=== PATIENT | female | born 1985 | race Caucasian/White ===

== ENCOUNTER → 2017-07-14 09:34 | Outpatient (CLI) | payer OTHER, SELFPAY ==
[2017-07-14 12:24] LABS: Hematocrit 34.4 % (37-47); Hemoglobin 11.3 g/dl (12.0-15.0); Mean Corp Hgb Conc 32.8 g/gl (32-36); Mean Corpuscular Hgb 31.6 pg (27.0-32.0); Mean Corpuscular Volume 96.1 fL (81-99); Mean Platelet Vol. 11.9 fl (6.2-12.0); Platelet Count 110 K/mm3 (150-450); RBC Distribution Width CV 13.1 % (11.6-14.6); RBC Distribution Width SD 45.7 fl (35.1-43.9); Red Blood Count 3.58 M/mm3 (4.2-5.4); White Blood Count 7.6 K/mm3 (4.4-11.0)
[2017-07-14 12:36] LABS: Glucose Challenge Gest 1H 50g 74 mg/dL (70-140)
[2017-07-14 12:40] LABS: Scan Indicated on CBC? Y/N NO
== END ==
PROVIDERS: Visit Provider Obstetrics & Gynecology
DX: Z34.83 Encounter for supervision of other normal pregnancy, third trimester (principal)
CPT/HCPCS: 36415; 82950; 85027; 86850

== ENCOUNTER → 2017-08-09 09:24 | Outpatient (CLI) | payer OTHER, SELFPAY ==
[2017-08-09 11:05] LABS: Platelet Count 126 K/mm3 (150-450)
== END ==
PROVIDERS: Visit Provider Obstetrics & Gynecology
DX: D69.6 Thrombocytopenia, unspecified (principal)
CPT/HCPCS: 36415; 85049

== ENCOUNTER → 2017-09-07 09:31 | Outpatient (CLI) | payer OTHER, SELFPAY ==
[2017-09-07 10:42] LABS: Hematocrit 34.8 % (37-47); Hemoglobin 11.5 g/dl (12.0-15.0); Mean Corpuscular Volume 96.9 fL (81-99); Mean Platelet Vol. 12.4 fl (6.2-12.0); Platelet Count 98 K/mm3 (150-450); RBC Distribution Width CV 13.5 % (11.6-14.6); RBC Distribution Width SD 45.5 fl (35.1-43.9); Red Blood Count 3.59 M/mm3 (4.2-5.4); White Blood Count 8.4 K/mm3 (4.4-11.0)
[2017-09-07 10:43] LABS: Scan Indicated on CBC? Y/N NO
[2017-09-07 13:25] LABS: Group B Strep DNA By PCR Negative (Negative); Internal Control PASS; Probe Check PASS; Specimen Processing Control PASS
== END ==
PROVIDERS: Visit Provider Obstetrics & Gynecology
DX: Z36.86 Encounter for antenatal screening for cervical length (principal); O99.113 Other diseases of the blood and blood-forming organs and certain disorders involving the immune mechanism complicating pregnancy, third trimester; D69.6 Thrombocytopenia, unspecified; Z3A.00 Weeks of gestation of pregnancy not specified
CPT/HCPCS: 36415; 85027; 87081; 87653

== ENCOUNTER → 2017-09-13 08:37 | Outpatient (CLI) | payer OTHER, SELFPAY ==
[2017-09-13 08:49] LABS: Hematocrit 33.8 % (37-47); Hemoglobin 11.4 g/dl (12.0-15.0); Mean Corp Hgb Conc 33.7 g/gl (32-36); Mean Corpuscular Hgb 32.6 pg (27.0-32.0); Mean Corpuscular Volume 96.6 fL (81-99); Mean Platelet Vol. 11.7 fl (6.2-12.0); Platelet Count 111 K/mm3 (150-450); RBC Distribution Width CV 13.4 % (11.6-14.6)
[2017-09-13 08:51] LABS: Scan Indicated on CBC? Y/N NO
== END ==
PROVIDERS: Visit Provider Obstetrics & Gynecology
DX: O99.113 Other diseases of the blood and blood-forming organs and certain disorders involving the immune mechanism complicating pregnancy, third trimester (principal); D69.6 Thrombocytopenia, unspecified; Z3A.00 Weeks of gestation of pregnancy not specified
CPT/HCPCS: 36415; 85027

== ENCOUNTER 2017-09-13 19:05 | Inpatient (IN) | payer OTHER, SELFPAY ==
[2017-09-13 20:00] LABS: Hematocrit 34.8 % (37-47); Hemoglobin 11.5 g/dl (12.0-15.0); Mean Corpuscular Hgb 31.1 pg (27.0-32.0); Mean Corpuscular Volume 94.1 fL (81-99); Mean Platelet Vol. 11.9 fl (6.2-12.0); Platelet Count 129 K/mm3 (150-450); RBC Distribution Width CV 13.3 % (11.6-14.6); Scan Indicated on CBC? Y/N NO; White Blood Count 9.3 K/mm3 (4.4-11.0)
[2017-09-13] MEDS: 0.9% Saline Lock 10 ML Syringe IV (20:08)
[2017-09-13] MEDS: miSOPROStol 25 MCG TABLET PO (20:08)
[2017-09-13 20:14] VITALS: BMI 26.8
--- NOTE | 2017-09-13 22:18 | PCM.PN.BLA ---
Progress Note LABOR PROGRESS NOTE 37 5/7 wk EGA. Induction of labor for thrombocytopenia. S/P steroids and inc Plts noted 129K this evening with admission , was under 100K last week AVSS EFM 130-140s accels to 170s, category I tracing UCs irregular, but at times q 3-5 mins CX; deferred 06/16/ in ofc earlier today. A/P: induction of labor for thrombocytopenia. 37 5/7 wk EGA. Adequate response of Plts to steroids given. Wants epidural when appropriate. Continue Cytotec induction overnight to Pitocin and AROM in am.
[2017-09-14] MEDS: miSOPROStol 25 MCG TABLET PO ×2 (00:07→04:38)
--- NOTE | 2017-09-14 06:26 | PCM.PN.BLA ---
Progress Note LABOR PROGRESS NOTE 37 6/7 wk induction for thrombocytopenia, improved after steroids. EFM 130-140s with accels. category I tracing UCs irregular CX at approx 0430 am /-1 A/P: 37 6/7 wk thrombocytopenia. Plts last 129K after prednisone. Cytotec induction. To AROM and pitocin today. Continue labor.
--- NOTE | 2017-09-14 07:33 | PCM.PN.BLA ---
Progress Note LABOR PROGRESS NOTE Rested and slept some overnight. Cytotec induction AVSS EFM 130-140s category I tracing UCs irregular CX: /-2 more midposition, moderate consistency. AROM. [place] dischg A/P: 37 6/7 wk induction for h/o thrombocytopenia this . Plts at 129K after steroids. Continue induction D/C Cytotec, begin pitocin per protocol
[2017-09-14] MEDS: 0.9% Saline Lock 10 ML Syringe IV (08:35)
[2017-09-14] MEDS: Lactated Ringers 1,000 ML 50 ML IV ×2 (08:40→10:55)
[2017-09-14] MEDS: Oxytocin 30 units/NS 500 ml 30 UNITS/500 ML IV.SOLN IV (08:40)
--- NOTE | 2017-09-14 13:18 | PCM.PN.BLA ---
Progress Note LABOR PROGRESS NOTE Feeling some stronger UCs. Not sure when to get epidural AVSS Pitocin A 12 mIU/min EFM 130-140s avg variability. Accels UCs irregular, hard to picker some IUPC placed Clear fluid leaking. to lt pink dischg CX: 75/-2 midposition, mod consistency A/P: 37 6/7 wk EGA induction 2/2 h/o thrombocytopenia this . Good response to steroids given. Plt 129K at last check with admission labs. Continue pitocin induction after cytotec and AROM
--- NOTE | 2017-09-14 13:21 | PN_ITS ---
Progress Note LABOR PROGRESS NOTE Feeling some stronger UCs. Not sure when to get epidural AVSS Pitocin A 12 mIU/min EFM 130-140s avg variability. Accels UCs irregular, hard to picking supervisor some IUPC placed Clear fluid leaking. to lt pink dischg CX: 75/-2 midposition, mod consistency A/P: 37 6/7 wk EGA induction 2/2 h/o thrombocytopenia this . Good response to steroids given. Plt 129K at last check with admission labs. Continue pitocin induction after cytotec and AROM
[2017-09-14 14:04] LABS: Platelet Count 113 K/mm3 (150-450)
[2017-09-14] MEDS: fentaNYL-bupivacaine (epidural) 100 ML BAG EPIDURAL (16:43)
--- NOTE | 2017-09-14 17:32 | PCM.PN.BLA ---
Progress Note LABOR PROGRESS NOTE Comfortable now with epidural, difficult placement d/t narrow spaces AVSS Pitocin induction after cytotec and AROM EFM category 1 tracing. 130-140s avg with accels UCs appear adequate. q 3-4 mins CX: posterior / / mod consistency, full bladder A/P: 37 6/7 wk induction. Continue pitocin. Position changes, reyes to assist rotation and descent Anticipate
[2017-09-14] MEDS: Oxytocin 30 units/NS 500 ml 30 UNITS/500 ML IV.SOLN 334 UNITS IV (20:13)
--- NOTE | 2017-09-14 20:35 | PCM.OB.VAG ---
Vaginal Delivery Maternal Presentation: Medically Indicated Induction - thrombocytopenia, term IUP 37 5/7 wk cytotec induction Method of Induction: Pitocin, Amniotomy, Cytotec Medical Reason for Induction: Maternal Medical Condition: list: - thrombocytopenia, - Amniotic Membrane Rupture Type: Artificial Amniotic Fluid Description: Clear Final ALL: 09/29/17 Final ALL Source: US <20 weeks Gestational age: 37 Weeks and 6 Days Date of Procedure: 09/14/17 Pre-Operative Diagnosis: 37 6/7 wk EGA, thrombocytopenia Post-Operative Diagnosis: Same Surgery/ Procedure Performed: Spontaneous Vaginal Delivery Type of Anesthesia: Epidural Description of Procedure: of a grullon viable female over intact perineum. Head delivered OMAR. No nuchal cord. Shoulders delivered easily. Infant to maternal abdomen. Delayed cord clamping then cord clamped x two and cut. Routine cord blood for typing collected Placenta delivered by spont expulsion, expression 3V normal appearing and intact with trailing membranes PP exam; 1st deg laceration at posterior perineum. Repaired to hemostatic, intact under epidural anesthesia with 3-0 Vicryl rapide Ray He counts correct x two Patient and tolerated delivery well. TO recovery in stable condition. Presentation: Vertex, OMAR Placental Delivery Description: Spontaneous, Expressed Placenta Disposition: [facility] Cord Vessel Description: 3 Vessels Cord Entanglement: None Drain: Díaz to straight drain Estimated Blood Loss: 250 Infant A gender: Female (1 minute): 9 (5 minute): 9 Episiotomy Description: None Laceration: Midline, Perineal Extension/lac, 1st degree Medications given after delivery: IV Pitocin Complications: None
[2017-09-14] MEDS: Oxytocin 30 units/NS 500 ml 30 UNITS/500 ML IV.SOLN 167 UNITS IV (20:43)
[2017-09-15 00:05] VITALS: BP 113/61; PULSE 85; RESP 18; TEMP 36.8; O2SAT 97
[2017-09-15] MEDS: Ibuprofen 600 MG Tablet PO ×3 (00:05→18:55)
[2017-09-15 04:29] VITALS: BP 107/73; PULSE 93; RESP 16; TEMP 36.7; O2SAT 97
--- NOTE | 2017-09-15 06:30 | PCM.PROGNOTE ---
Subjective: PPD#1 induction at 37 6/7 wk for thrombocytopenia hx Doing well. baby has been spitting up a lot. Breast feeding. Painful/sore at back at epidural site and some inc cramping with nursing. Tylenol taken for pain. Objective: semirecumbent in bed , holding baby - Physical Exam General: Alert, Oriented x3, Cooperative, No apparent distress HEENT: Atraumatic, EOMI Abdomen: Soft - Fundus firm NT inferior to umbilicus Extremities: No edema Psych/Mental Status: Normal Affect Vital Signs Temp Pulse Resp BP Pulse Ox 98.1 F 93 16 107/73 97 09/15/17 04:29 09/15/17 04:29 09/15/17 04:29 09/15/17 04:29 09/15/17 04:29 Oxygen Delivery Method Room Air Weight: 73.2 kg Body Mass Index (BMI) 26.8 Intake and Output for Last 24 Hours 09/13/17 09/14/17 09/15/17 23:59 23:59 23:59 Intake Total 827 / 827 Output Total 2024 / 2024 Balance -1198 / -1198 Laboratory Tests Past 24 Hrs 09/14/17 13:54 Plt Count 113 L Medical Necessity - Tobacco Use Smoking Status: Never smoker Assessment/Plan PPD#1 Stable pp. Continue care. potential for dischg home today if requested. GBS neg.
[2017-09-15 08:29] VITALS: BP 112/70; PULSE 92; RESP 18; TEMP 36.5; O2SAT 98
[2017-09-15] MEDS: Prenatal Vits Tablet 1 TABLET PO (10:32)
[2017-09-15 12:38] VITALS: BP 113/63; PULSE 94; RESP 18; TEMP 36.3; O2SAT 99
[2017-09-15 16:20] VITALS: BP 105/64; PULSE 89; RESP 18; TEMP 36.5; O2SAT 98
[2017-09-15 20:10] VITALS: BP 107/68; PULSE 86; RESP 20; TEMP 36.7
--- NOTE | 2017-09-15 22:10 | NURSING ---
Patient discharged via wheelchair holding infant on lap in wheelchair. Aware she needs to follow up with Dr Kemal jiang. No further questions or concerns.
== END 2017-09-15 22:05 | disposition home or self-care (01) | DRG 775 ==
PROVIDERS: Admitting Provider Obstetrics & Gynecology; Family Provider Family Medicine; PCP Family Medicine; Visit Provider Obstetrics & Gynecology
DX: O99.12 Other diseases of the blood and blood-forming organs and certain disorders involving the immune mechanism complicating childbirth (principal); O70.0 First degree perineal laceration during delivery; O60.14X0 Preterm labor third trimester with preterm delivery third trimester, not applicable or unspecified; Z37.0 Single live birth; D69.6 Thrombocytopenia, unspecified; Z3A.37 37 weeks gestation of pregnancy
CPT/HCPCS: 59025; 59050; 85027; 85049; 86850; 86900; 99218; J7120; A4216; G0378

== ENCOUNTER → 2017-11-18 08:51 | Outpatient (CLI) | payer OTHER, SELFPAY ==
--- NOTE | 2017-11-18 08:54 | VDLE_ITS ---
Reason For Study: BLE pain RIGHT LEFT CFV is compressible, spontaneous, phasic, CFV is compressible, spontaneous, phasic, competent and demonstrates normal competent, and demonstrates normal augmentation. augmentation. FV is compressible, spontaneous, phasic, FV is compressible, spontaneous, phasic, competent and demonstrates normal competent and demonstrates normal augmentation. augmentation. POP V is compressible, spontaneous, phasic, POP V is compressible, spontaneous, phasic, competent and demonstrates normal competent and demonstrates normal augmentation. augmentation. T/P Trunk is compressible. T/P Trunk is compressible. PTV is compressible. PTV is compressible. RT PerV is compressible. LT PerV is compressible. SFJ is competent. SFJ is competent. RT GSV is incompetent > .5 seconds with max GSV is incompetent > .5 seconds with max diam of 0.25 x 0.25 cm. diam of 0.451 x 0.428 cm. RT SSV is competent. SSV is incompetent > .5 seconds with max Varocosities posterior knee are diam of 0.376 x 0.407 cm. compressible. Posterior calf varocosities are Procedure compressible. Exam performed in department. The study was technically difficult. A preliminary report was called and/or faxed to Dr. Fermin @ 10:15 am. Interpretation Summary 1. bilateral no DVT. 2. Righ gsv small 2.5mm wiht reflux. 3. Left gsv 4.5mm with reflux 4. Lef lsv 4.1mm with relfux. Ordering Physician: Justo Fermin Referring Physician: Agustín Miramontes Performed By: Delaney Núñez, ANTONIETA, RVT
== END ==
PROVIDERS: Family Provider Family Medicine; PCP Family Medicine; Visit Provider Surgery Vascular Surgery
DX: M79.609 Pain in unspecified limb (principal); Z86.79 Personal history of other diseases of the circulatory system; M79.89 Other specified soft tissue disorders; I83.893 Varicose veins of bilateral lower extremities with other complications
CPT/HCPCS: 93970

== ENCOUNTER → 2019-06-07 09:38 | Outpatient (CLI) | payer OTHER, SELFPAY ==
[2019-06-07 12:49] LABS: D-Dimer Quantitative (DVT/PE) 0.45 FEU/ug/m (0.27-0.49)
== END ==
PROVIDERS: PCP Family Medicine; Referring Provider Family Medicine; Visit Provider Family Medicine
DX: R07.9 Chest pain, unspecified (principal)
CPT/HCPCS: 36415; 85379

== ENCOUNTER 2021-06-02 12:01 | Outpatient (CLI) | payer OTHER, SELFPAY ==
[2021-06-02 13:14] LABS: Hematocrit 38.4 % (37-47); Hemoglobin 12.7 g/dL (12.0-15.0); Mean Corp Hgb Conc 33.1 g/dL (32-36); Mean Corpuscular Hgb 30.5 pg (27.0-32.0); Mean Corpuscular Volume 92.1 fL (81-99); Mean Platelet Vol. 11.6 fl (6.2-12.0); Platelet Count 220 K/mm3 (150-450); RBC Distribution Width CV 13.3 % (11.6-14.6); RBC Distribution Width SD 45.1 fl (35.1-43.9); Red Blood Count 4.17 M/mm3 (4.2-5.4); White Blood Count 6.8 K/mm3 (4.4-11.0)
[2021-06-02 13:39] LABS: Estradiol 163.9 pg/mL; Follicle Stimulating Hormone 1.7 mIU/mL; Luteinizing Hormone 3.2 mIU/mL; Thyroid Stim Hormone (TSH) 0.78 uIU/mL (0.358-3.74)
[2021-06-04 16:40] LABS: HPV APTIMA, High Risk Negative (Negative)
== END 2021-06-02 23:59 | disposition short-term general hospital (02) ==
LOC: WOBLAB 12:02
PROVIDERS: PCP Family Medicine; Visit Provider Student in an Organized Health Care Education/Training Program
DX: N93.9 Abnormal uterine and vaginal bleeding, unspecified (principal); Z12.4 Encounter for screening for malignant neoplasm of cervix
CPT/HCPCS: 36415; 82670; 83001; 83002; 84146; 84443; 85027; 87624; 88175; G0145

== ENCOUNTER 2021-06-30 11:41 | Outpatient (CLI) | payer OTHER, SELFPAY ==
[2021-07-02 10:07] LABS: Cancer Antigen 125 21.8 U/mL (0.0-38.1)
== END 2021-06-30 23:59 | disposition home or self-care (01) ==
LOC: WOBLAB 11:43
PROVIDERS: PCP Family Medicine; Visit Provider Student in an Organized Health Care Education/Training Program
DX: N83.209 Unspecified ovarian cyst, unspecified side (principal)
CPT/HCPCS: 36415; 86304

== ENCOUNTER 2021-08-03 06:08 | Day surgery (SDC) | payer OTHER, SELFPAY ==
[2021-07-28 15:14] LABS: Hematocrit 37.9 % (37-47); Hemoglobin 12.6 g/dL (12.0-15.0); Mean Corp Hgb Conc 33.2 g/dL (32-36); Mean Corpuscular Hgb 29.8 pg (27.0-32.0); Mean Corpuscular Volume 89.6 fL (81-99); Mean Platelet Vol. 11.3 fl (6.2-12.0); Platelet Count 214 K/mm3 (150-450); RBC Distribution Width CV 12.5 % (11.6-14.6); RBC Distribution Width SD 41.1 fl (35.1-43.9); Red Blood Count 4.23 M/mm3 (4.2-5.4); White Blood Count 8.2 K/mm3 (4.4-11.0)
--- NOTE | 2021-08-03 06:15 | HP.PCM.OB_ITS ---
History and Physical Date of Admission: 08/03/21 HISTORY OF PRESENT ILLNESS: On 07/28/2021, Tisha Ramos, a 35 year old female 4 0 0 0 4, presented for hysteroscopy, dilation and curettage, endometrial ablation and TVT sling. She has had heavy menstrual bleeding that is interfering with daily life. Patient also reports stress incontinence. Incontinence is worsening and has been for several years. MEDICAL HISTORY: 1. Depression MEDICATIONS HISTORY: 1. venlafaxine 50 mg tablet, One pill by mouth once a day SURGICAL HISTORY: denies ALLERGIES: NKDA MENSTRUAL HISTORY: LMP Known?- Definite Amount/Duration - 5-6, Regularity - Regular, Frequency - monthly days, LMP - 07/07/21, Age Onset Menarche - 11 PAST PREGNANCIES: Total Pregnancies - 4; Full Term Pregnancies - 4; Premature - 0; Abortions, Induced - 0; Abortions, Spontaneous - 0; Ectopics - 0; Multiple Births - 0; Living Children - 4 FAMILY HISTORY: cardiovascular disease SOCIAL HISTORY: Alcohol Use - None Smoking - Never Drug Use - denies REVIEW OF SYSTEMS: GENERAL - Denies fever, or chills SKIN - Denies skin changes EYES - Denies visual changes EARS - Denies difficulty hearing NOSE - Denies nasal congestion or bleeding MOUTH - Denies sore throat or difficulty swallowing NECK - Denies pain or swelling RESPIRATORY - Denies shortness of breath or wheezing CARDIOVASCULAR - Denies palpitations or chest pain GASTROINTESTINAL - Denies nausea, vomiting, diarrhea, constipation GENITOURINARY - Denies dysuria, frequency of urination, incontinence of urine MUSCULOSKELETAL - Denies joint or muscle pain NEUROLOGICAL - Denies localized numbness or weakness PSYCHIATRIC - Denies depression or anxiety ENDOCRINE - Denies heat or cold intolerance, weight loss or gain HEMATO-IMMUNOLOGIC - Denies excessive bleeding with cuts PHYSICAL EXAMINATION BP- 124/70 Sitting, Right arm, regular cuff Weight- 172.0 lbs Height- 66.5 inch BMI:27.34 CONSTITUTIONAL - NAD, well nourished, and well developed SKIN - No rash, lesions, or ulcers HEENT - Normocephalic, PERRLA, EOMI NECK - No nodes, no nuchal rigidity and thyroid normal size and texture LYMPH NODES - Palpation of lymph nodes in neck and groins within normal limits LUNGS - CTA x2 without wheezes, crackles or rales CARDIAC - Regular rate and rhythm without rubs, murmurs, or gallops ABDOMEN - Without hepatosplenomegaly, distention, masses, rebound, or guarding; normal bowel sounds; no hernias EXTREMITIES - No edema or calf tenderness NEUROLOGICAL - Cranial nerves II-XII grossly intact PSYCHIATRIC - A and O to time, place, person, mood and affect ASSESSMENT/PLAN BY DIAGNOSIS: Plan for hysteroscopy, dilation and curettage, endometrial ablation and TVT sli ng for abnormal uterine bleeding and stress incontinence. All risk, benefits, alternatives were discussed with the patient. Risks include but are not limited to: Risk of bleeding to the point of transfusion, infection, injury to surrounding tissue including bowel/bladder/uterine perforation, VTE, ICU admission. Patient aware that with retropubic sling there is risk for urinary retention possibly requiring Díaz catheter use and intermittent catheterization. Patient aware and consented.
[2021-08-03 06:47] LABS: Internal QC Validated? YES +Cl - CLEAR BKGD; Pregnancy, Urine Negative Negative
[2021-08-03 06:52] VITALS: BP 114/64; PULSE 81; RESP 16; TEMP 36.4; O2SAT 100; BMI 27.8
[2021-08-03] MEDS: Lactated Ringers 1,000 ML 125 ML IV ×2 (06:57→08:45)
[2021-08-03] MEDS: Cefotetan 2 GM in 0.9% NS 100 ML IV (07:24)
[2021-08-03] MEDS: Lubricating Jelly 60 GM Tube 30 GM (07:30)
--- NOTE | 2021-08-03 07:30 | EMB_PTH ---
PATIENT: DORON LUIS LOC: [facility] – [place] U#:[id number] AGE/SX: 35/F ROOM: RE08/03/[address]: Dr. Negrita Milton DO : 1985 BED: DIS: 08/03/2021 SPEC #: [id number] RECD: 08/03/21 10:58 STATUS: GISELL RELamine #: [id number] DAVID: 08/03/21 07:[address]: Negrita Milton DEPT: SURGICAL PATHOLOGY RECD BY: Carlie White ENTERED: 08/03/21 13:26 SP TYPE: ENDOM BX/C MAT DR: Dr. Agustín Miramontes MD Tissues: Endometrium, NOS Procedures: Surgery Specimen Level IV HEADER OPERATION: Hysteroscopy, D & C Charo, TVT sling, cystoscopy PRE-OP DIAGNOSIS: Abnormal uterine bleeding and stress incontinence TISSUE SUBMITTED: Endometrial curettings MICROSCOPIC DIAGNOSIS Endometrium, curettings: Secretory endometrium. AM:meagan 08/04/2021 MICROSCOPIC DESCRIPTION Slides are reviewed. GROSS DESCRIPTION Received in fixative is one container labeled with the patient's name and designated endometrial curettings. The specimen consists of multiple irregular fragments of pink-laird soft tissue that in aggregate measure 1.5 x 3 x 0.2 cm. The specimen is totally submitted in two cassettes. / SJ:meagan 08/03/2021 TC:5 CPT: 72966
[2021-08-03] MEDS: Lidocaine 1% (20 ml mdv) 20 ML Vial (07:50)
--- NOTE | 2021-08-03 08:31 | OP.PCM_ITS ---
Report of Operation Date of Procedure: 08/03/21 Pre-Operative Diagnosis: Abnormal uterine bleeding, Stress urinary incontinence Post-Operative Diagnosis: Abnormal uterine bleeding, Stress urinary incontinence Surgery/Procedure Performed:: Hysteroscopy, Dilation and Curettage, Endometrial Ablation, TVT Sling Description of Surgical Findings:: Normal-appearing external genitalia. Normal- appearing endometrial cavity. Moderate uterine descensus. Surgeon: Negrita Milton security alarm technician: Leighton Milton Type of Anesthesia: General Specimen's removed: Endometrial curettings Estimated Blood Loss (mL): 50CC Fluids Replaced: 900CC Description of Procedure: Indications/risk/benefits: Plan for hysteroscopy, dilation and curettage, endometrial ablation and TVT sling for abnormal uterine bleeding and stress incontinence. All risk, benefits, alternatives were discussed with the patient. Risks include but are not limited to: Risk of bleeding to the point of transfusion, infection, injury to surrounding tissue including bowel/bladder/uterine perforation, VTE, ICU admission. Mesh erosion, extrusion. Patient aware that with retropubic sling there is risk for urinary retention possibly requiring Díaz catheter use and intermittent catheteriza tion. Patient aware and consented Procedure: Patient taken to the operating room and placed under general anesthesia. Patient placed in the dorsal lithotomy position prepped and draped in the usual sterile fashion. Díaz catheter placed. Weighted speculum placed in posterior vagina and anterior lip the cervix grasped with Allis clamp. Cervix gradually dilated. Hysteroscope placed through cervical canal and endometrial cavity visualized. Cervical length noted to be 4 cm. Uterus sounded to 9 cm, therefore cavity length 5 cm. Curettage completed in 360 degree manner. Charo device opened. Charo placed through the cervical canal and deployed in the endometrial cavity. Passed cavity assessment. Charo device initiated. Device removed. Sling then performed. Suprapubic area marked along the superior edge of the pubic bone 2 cm laterally on each side from midline. 1 cm measured from urethral opening cephalad. Vaginal mucosa along the underside of the urethra grasped with 2 Allis clamps. 1.5 centimeter incision made with scalpel. Vaginal mucosal dissected away from the urethra bilaterally using sharp and blunt dissection. Sling trocar set up. Bladder deviated using stylette in the Díaz. Right trocar placed through the vaginal opening that was just created, hand dropped a long trocar to nagy through the suprapubic skin that was previously marked. Trocar removed leaving mesh in place. Bladder deviated to the contralateral side. Trocar attached to the left side of the mesh which was then placed through the vaginal opening to the left of the urethra. Hand dropped and trocar pierced suprapubic region previously marked in the similar fashion. Trocar removed. Cystoscopy performed. Bladder dome in tact, no perforations of sling mesh. Mesh ends grasped with hemostats and pulled through skin incision. Renee clamp placed under urethra to allow space between the mesh and the urethra. Mesh adjusted to appropriate desired tension. Mesh sheath removed bilaterally, keeping Renee clamp between the urethra and mesh. Mesh trimmed along the suprapubic skin. Skin closed with skin glue. Vaginal mucosa made hemostatic with the Bovie and FloSeal. Vaginal mucosa closed with a running locking stitch. At the end of the procedure all needle, lap, sponge counts correct. UOP: 50CC Complications None
[2021-08-03 08:47] VITALS: BP 106/65; BP 114/64; PULSE 92; RESP 16; TEMP 36.9; O2SAT 97
--- NOTE | 2021-08-03 08:55 | PCM.DC ---
Discharge Instructions Diet Discharge Diet: No restrictions Activity Discharge Activity: Return to Normal Activity and May Shower May resume sexual activity in: 4-6 weeks Weight Bearing Status: Weight bearing as tolerated Lifting Restrictions: No greater than 25 pounds Dressing / Incision Call your doctor if your incision/area has: Continuous Slow Oozing, Increased Redness and Foul Smelling Discharge Call your doctor if you observe: Fever of 101 or Higher, Change in Color, Inability to urinate, Using more than 1 pad per hour, Shortness of breath, Dizziness, Swelling in the ankles, Chest pain and Calf discomfort Cleanse incision/area with: Soap & Water Follow Up Care Please Follow Up With: Negrita Milton DO When: 2 week post operative visit Test Results: Test results from this visit will be discussed in further detail at your follow-up appointment, if applicable. Discharge Plan Admission Primary Reason for Your Visit: Ablation and Bladder sling Attending Provider: Negrita Milton Primary Care Provider: Agustín Miramontes Discharge Orders/Prescriptions Prescriptions: New oxycodone 5 mg tablet 5 mg PO Q6H PRN (Reason: pain (scale score 7-10)) 3 Days Qty: 7 RF: 0 Continued venlafaxine 75 mg Tablet 75 mg PO QHS RF: 0 Referrals / Follow Up: Agustín Miramontes MD [Primary Care Provider] - Disposition Disposition (needs filled in before D/C Order can be placed): Home, Self Care
[2021-08-03 09:00] VITALS: BP 114/64; BP 96/57; PULSE 90; RESP 16; O2SAT 100
[2021-08-03 09:15] VITALS: BP 107/62; BP 114/64; PULSE 82; RESP 16; TEMP 36.5; O2SAT 100
--- NOTE | 2021-08-03 10:35 | SUR.PHASEII ---
reyes back filled with 300cc NSS, fc removed. Pt up to BR and voided 300cc pink urine into hat. sm amt sang drainage on pad.
[2021-08-03 11:05] VITALS: BP 108/58; BP 114/64; PULSE 70; RESP 16; TEMP 36.6; O2SAT 100
== END 2021-08-03 23:59 | disposition home or self-care (01) ==
LOC: SDC 06:09 → AC 06:09
PROVIDERS: Anesthesiology; PCP Family Medicine; Referring Provider Student in an Organized Health Care Education/Training Program; Visit Provider Student in an Organized Health Care Education/Training Program
PROC: 0U5B8ZZ Destruction of Endometrium, Via Natural or Artificial Opening Endoscopic (ICD-10-PCS; CPT 58558; principal; 2021-08-03 07:15)
DX: N93.9 Abnormal uterine and vaginal bleeding, unspecified (principal); N39.3 Stress incontinence (female) (male); N92.0 Excessive and frequent menstruation with regular cycle; F32.A Depression, unspecified; F41.9 Anxiety disorder, unspecified; Z97.3 Presence of spectacles and contact lenses; Z86.718 Personal history of other venous thrombosis and embolism
CPT/HCPCS: 58563; 00952; 51992; 36415; 81025; 85027; 86850; 86900; 86901; 87635; 88305; J7120; J2405; U0003; U0005

== ENCOUNTER 2021-08-04 18:41 | Emergency (ER) | payer OTHER, SELFPAY ==
[2021-08-04 18:42] VITALS: BP 111/67; PULSE 90; RESP 18; TEMP 36.6; O2SAT 100; BMI 27.4
--- NOTE | 2021-08-04 19:03 | ED.VIS.LOWEX ---
HPI History of Present Illness Chief Complaint: Lower Extremity Injury Informant: patient Occured/Mechanism Comment: Proximal medial right thigh pain and vein distention status post TELEGRAPH [employer] MECH[employer]IC surgery Onset/Context/Timing Context: Sudden Onset Timing: Continuous Quality of Pain: Dull Current Severity: Mild Maximum Severity: Moderate Worsened by: Palpation of distended vein Relieved by: Nothing Associated Symptoms Associated Symptoms: Negative for Parasthesia, Weakness and Loss of Funtion Narrative Narrative: Patient is a 35-year-old woman history of prior DVT who had vein stripping of the proximal right medial thigh 3 years ago. 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 She presents because of pain and leg vein distention. She denies fever chills night sweats. She denies chest pain or shortness of breath. She denies any vaginal bleeding. She denies any urologic symptoms. Tetanus Immunization: 5-10 years Prior similar symptoms: Yes Recent Illness/Hospitalization: Yes [facility] Medical History (Updated 08/04/21 @ 20:[address] Eyal Rodriguez MD) Anxiety Cardiology follow-up encounter DVT (deep venous thrombosis) Non-smoker Wears contact lenses Home Medications venlafaxine 75 mg PO QHS 07/31/21 [History Last Taken Unknown] oxycodone 5 mg PO Q6H PRN 3 Days #7 tab 08/03/21 [Rx Last Taken Unknown] Allergy/AdvReac Type Severity Reaction Status Date / Time No Known Allergies Allergy Verified 08/04/21 19:04 Surgical History No history of previous surgery S/P vein stripping Social History (Updated 08/04/21 @ 19:[address] Eyal Rodriguez MD) household members: spouse Smoking Status: Never smoker substance use type: does not use ROS ROS ED Constitutional Constitutional ED: Denies chills, fever(s), subjective, sweats or weight loss Eyes Eyes: Denies blurry vision, change in vision or diplopia Cardiovascular Cardiovascular: Denies chest pain, palpitations or racing heartbeat Respiratory/Chest Respiratory/Chest: Denies cough, dyspnea or dyspnea on exertion Gastrointestinal Gastrointestinal: Denies nausea or vomiting Genitourinary Genitourinary ED: Denies dysuria, hematuria or urinary frequency Musculoskeletal Musculoskeletal: Reports other Details: Documented HPI ; Denies arthralgias, back pain, myalgias or neck pain Integumentary Denies rash Hematologic/Lymphatic Hematologic/Lymphatic: Denies easy bleeding or easy bruising EXAM Physical Exam Const Vital Signs: 08/04/21 18:42 08/04/21 19:04 Temperature 97.9 F Temperature Source Temporal Pulse Rate 90 68 Respiratory Rate 18 15 Blood Pressure 111/67 119/82 H Blood Pressure Mean 81 94 Pulse Ox 100 98 Oxygen Delivery Method Room Air Room Air Positive well nourished and well developed General Appearance ED: well developed and NAD HEENT normocephalic and atraumatic Eyes PERRL Eyes Narrative: Extract muscle intact. Sclerae anicteric. Neck full ROM Resp normal respiratory effort and clear to auscultation bilaterally Cardio regular rate and regular rhythm Narrative: There is no inguinal lymphadenopathy. There is no evidence of infection incision sites. There is no evidence of inguinal hernia. There is distention of the proximal superficial veins right thigh. There is no palpable cord. Neuro oriented x3, CN's II-XII intact bilaterally and no sensory deficits noted Sensorium / Orientation: alert Motor Exam: strength 5/5 throughout Psych mental status grossly normal Skin No no wounds Skin Narrative: Incision sites healing without evidence of infection Lesions: no lesions Rashes: no rashes MDM MDM MDM Narrative Medical decision making narrative: With pain to palpation over the superficial right thigh veins prior history of DVT recent surgery and no evidence infection venous duplex study was ordered to assess for blood clot. Radiography Diagnostic Testing: Clinical Impression(s) from Imaging Studies Venous Duplex 08/04/21 19:20 IMPRESSION: There is no demonstrated deep venous thrombosis. Right medial thigh varicose veins are non compressible suggesting a superficial thrombosis. Electronically Signed: Renan Hernandez MD at 20:24 EDT Reading Location ID and State: [facility] / [place] , Service support , Preliminary reading of venous duplex study indicates superficial phlebitis. There is no evidence of DVT. Will review images once available. Discharge Plan Triage Chief Complaint: Lower Extremity Injury ED Provider: Eyal Rodriguez Dx/Rx/DC Orders Clinical Impression: Superficial phlebitis of right leg Instructions: ED Thrombophlebitis, Superficial Prescriptions: No Action venlafaxine 75 mg Tablet 75 mg PO QHS RF: 0 oxycodone 5 mg tablet 5 mg PO Q6H PRN (Reason: pain (scale score 7-10)) 3 Days Qty: 7 RF: 0 Primary Care Provider: Agustín Miramontes Referrals: Agustín Miramontes MD [Primary Care Provider] - 1 Week if not improving Activity Restrictions/Additional Instructions: 1. Hot compresses/warm compresses 6-8 times a day 2. Take an aspirin a day for the next 1 week Disposition Disposition: Home, Self Care
[2021-08-04 19:04] VITALS: BP 119/82; PULSE 68; RESP 15; O2SAT 98
--- NOTE | 2021-08-04 19:20 | US_ITS ---
STUDY: VENOUS DOPPLER ULTRASOUND - RIGHT LOWER EXTREMITY REASON FOR EXAM: Female, 35 years old. LEG PAIN AND SWELLING RT UPPER THIGH REDNESS AND TENDERNESS TECHNIQUE: Ultrasound evaluation of the deep vein system to include de luna-scale imaging and compression was performed. De Luna-scale imaging and Doppler sonographic evaluation, including duplex spectral analysis and qualitative color flow sonography, was performed. COMPARISON: None. FINDINGS: Common Femoral Vein: Normal compression, spontaneity and augmentation. Normal color Doppler. Common Femoral Vein/Greater Saphenous Junction: Normal compression, spontaneity and augmentation. Normal color Doppler. Superficial Femoral Proximal: Normal compression, spontaneity and augmentation. Normal color Doppler. Superficial Femoral Middle: Normal compression, spontaneity and augmentation. Normal color Doppler. Superficial Femoral Distal: Normal compression, spontaneity and augmentation. Normal color Doppler. Popliteal Vein: Normal compression, spontaneity and augmentation. Normal color Doppler. Posterior Tibial Vein: Normal compression, spontaneity and augmentation. Normal color Doppler. Peroneal Vein: Normal compression, spontaneity and augmentation. Normal color Doppler. Right medial thigh varicose veins are non compressible suggesting a superficial thrombosis. There is no demonstrated deep venous thrombosis. US/Venous Duplex Imag/Limited/Uni IMPRESSION: There is no demonstrated deep venous thrombosis. Right medial thigh varicose veins are non compressible suggesting a superficial thrombosis. Electronically Signed: Renan Hernandez MD at 20:24 EDT ,
[2021-08-04] MEDS: Aspirin 325 MG Tablet PO (20:37)
[2021-08-04 20:40] VITALS: BP 120/80; PULSE 68; RESP 16; O2SAT 98
== END 2021-08-04 20:41 | disposition home or self-care (01) ==
PROVIDERS: Emergency Provider Emergency Medicine; PCP Family Medicine; Visit Provider Emergency Medicine
DX: I80.01 Phlebitis and thrombophlebitis of superficial vessels of right lower extremity (principal); Z86.718 Personal history of other venous thrombosis and embolism; Z98.890 Other specified postprocedural states
CPT/HCPCS: 93971; 99282

== ENCOUNTER → 2022-04-01 | Outpatient (CLI) | payer OTHER, SELFPAY ==
[2022-04-05 11:15] LABS: Hematocrit 40.5 % (37-47); Hemoglobin 13.6 g/dL (12.0-15.0); Mean Corp Hgb Conc 33.6 g/dL (32-36); Mean Corpuscular Hgb 30.6 pg (27.0-32.0); Mean Corpuscular Volume 91.2 fL (81-99); Mean Platelet Vol. 11.3 fl (6.2-12.0); Platelet Count 184 K/mm3 (150-450); RBC Distribution Width CV 13.5 % (11.6-14.6); Red Blood Count 4.44 M/mm3 (4.2-5.4); White Blood Count 7.3 K/mm3 (4.4-11.0)
== END | disposition home or self-care (01) ==
LOC: PAT 04-27 08:28
PROVIDERS: PCP Family Medicine; Visit Provider Student in an Organized Health Care Education/Training Program
DX: Z01.812 Encounter for preprocedural laboratory examination (principal); Z01.810 Encounter for preprocedural cardiovascular examination
CPT/HCPCS: 36415; 85027; 86850; 86900; 86901

== ENCOUNTER 2022-09-16 07:13 | Day surgery (SDC) | payer OTHER, SELFPAY ==
[2022-09-10 13:49] LABS: Hematocrit 41.3 % (37-47); Mean Corp Hgb Conc 33.9 g/dL (32-36); Mean Corpuscular Hgb 31.5 pg (27.0-32.0); Mean Platelet Vol. 11.2 fl (6.2-12.0); Platelet Count 196 K/mm3 (150-450); RBC Distribution Width CV 12.8 % (11.6-14.6); RBC Distribution Width SD 43.8 fl (35.1-43.9); Red Blood Count 4.44 M/mm3 (4.2-5.4); White Blood Count 8.7 K/mm3 (4.4-11.0)
[2022-09-16] VITALS (7 sets, daily range): BP systolic 94–110; BP diastolic 60–77; PULSE 75–94; RESP 16–18; TEMP 36.4–37.3; O2SAT 92–100; BMI 26.6
--- NOTE | 2022-09-16 07:10 | HP.PCM.OB_ITS ---
History and Physical Date of Admission: 09/16/22 HPI: 36-year-old female with mesh erosion plan for exam under anesthesia, repair of vaginal mesh erosion, cystoscopy. Denies headache or vision changes, chest pain or shortness of breath, nausea or vomiting, fevers or chills, diarrhea or constipation. [employer] history: G4, P4 Medical history: Denies Surgical history: 1.?Endometrial ablation and retropubic sling Medications: None Allergies: NKDA Family history: Denies Social history: Denies tobacco, alcohol, drug use Review of system: Negative otherwise stated above Physical exam: Vitals pending General: No acute distress HEENT: Normocephalic/atraumatic, PERRLA Cardiac: Regular rate and rhythm Respiratory clear to auscultation bilaterally Abdomen: Soft, nontender, nondistended Extremities: No edema Neurologic: Cranial nerves II through XII grossly intact, no focal deficits Musculoskeletal: Strength out of 5 throughout extremities. Assessment/plan: 36-year-old female with mesh erosion plan for exam under anesthesia, repair of vaginal mesh erosion, cystoscopy. All risk, benefits, alternatives discussed with patient.? Risk include but are not limited to: Risk of bleeding plan transfusion, infection, injury to surrounding tissue including bowel/bladder/major abdominal vessels, VTE, ICU admission.? Patient aware and consented.?
[2022-09-16 07:53] LABS: Internal QC Validated? YES +Cl - CLEAR BKGD; Pregnancy, Urine Negative Negative
[2022-09-16] MEDS: Lactated Ringers 1,000 ML 15 ML IV (08:04)
[2022-09-16] MEDS: Cefazolin 2 GM in 0.9% Normal Saline 100 ML IV (09:13)
--- NOTE | 2022-09-16 09:15 | OP.PCM_ITS ---
Report of Operation Date of Procedure: 09/16/22 Pre-Operative Diagnosis: Mesh erosion Post-Operative Diagnosis: Mesh erosion Surgery/Procedure Performed:: Exam under anesthesia, repair of vaginal mesh erosion, cystoscopy Description of Surgical Findings:: Normal-appearing external genitalia. Grade 1 anterior prolapse. The width of the mesh noted to be exposed in the anterior to posterior dimension, from right to left about 5 mm of mesh exposed, in the suburethral location. Healthy thickened vaginal tissue noted on each side of the portion of the exposed mesh. Cystoscopy completed: Noting no mesh erosion into the urethra or bladder. Bilateral ureteral orifices noted. Surgeon: Negrita Milton creative engagement director: Clifford Durbin Type of Anesthesia: MAC Specimen's removed: None Estimated Blood Loss (mL): 2 cc Fluids Replaced: 500cc Description of Procedure: Indications/Risks/Benefits: 36-year-old female with mesh erosion plan for exam under anesthesia, repair of vaginal mesh erosion, cystoscopy.? All risk, benefits, alternatives discussed with patient.? Risk include but are not limited to: Risk of bleeding plan transfusion, infection, injury to surrounding tissue including bowel/bladder/major abdominal vessels, VTE, ICU admission.? Patient aware and consented.? Procedure: Patient taken to the operating room and MAC anesthesia induced. Patient placed in the dorsal lithotomy position prepped and draped in the usual sterile fashion. Examination of the vagina completed with findings noting above. Cystoscopy completed noting findings above: No mesh exposed inside the urethra. Díaz catheter placed. Vaginal tissue grasped and reapproximated with [id number] stitches to cover the area of exposed mesh. No exposed mesh noted after closure. Cystoscopy completed again, noting unchanged findings from prior cystoscopy. Vaginal tissue examined again, confirming coverage of exposed mesh. Hemostasis confirmed. Weighted speculum removed. At the end of the procedure all needle, lap, sponge counts were correct. UOP: 400cc clear urine Complications None Admit VTE Documentation VTE Mechan Device Prophylaxis: SCD's
--- NOTE | 2022-09-16 09:16 | DCINST_ITS ---
Discharge Instructions Diet Discharge Diet: No restrictions Activity Discharge Activity: Return to Normal Activity and May Shower May resume sexual activity in: 6 weeks Weight Bearing Status: Weight bearing as tolerated Lifting Restrictions: No greater than 15 pounds Dressing / Incision Call your doctor if your incision/area has: Continuous Slow Oozing, Sudden Increased Bleeding, Increased Pain/ Swelling, Increased Redness and Foul Smelling Discharge Call your doctor if you observe: Fever of 101 or Higher, Change in Color, Cami bility to urinate, Using more than 1 pad per hour, Shortness of breath, Dizziness, Swelling in the ankles, Chest pain and Calf discomfort Cleanse incision/area with: Soap & Water Follow Up Care Please Follow Up With: Negrita Milton DO When: 1-2 week postoperative visit Test Results: Test results from this visit will be discussed in further detail at your follow- up appointment, if applicable. Discharge Plan Admission Primary Reason for Your Visit: Repair of mesh Attending Provider: Negrita Milton Primary Care Provider: Agustín Miramontes Discharge Orders/Prescriptions Prescriptions: No Action NK Referrals / Follow Up: Agustín Miramontes MD [Primary Care Provider] - Disposition Disposition (needs filled in before D/C Order can be placed): Home, Self Care
== END 2022-09-16 10:32 | disposition home or self-care (01) ==
LOC: SDC 07:15 → AC 07:17
PROVIDERS: Anesthesiology; PCP Family Medicine; Referring Provider Student in an Organized Health Care Education/Training Program; Visit Provider Student in an Organized Health Care Education/Training Program
PROC: (CPT 57410; principal; 2022-09-16 08:40)
DX: T83.711A Erosion of implanted vaginal mesh to surrounding organ or tissue, initial encounter (principal); Y84.9 Medical procedure, unspecified as the cause of abnormal reaction of the patient, or of later complication, without mention of misadventure at the time of the procedure; Z86.718 Personal history of other venous thrombosis and embolism
CPT/HCPCS: 52000; 57267; 36415; 81025; 85027; 86850; 86900; 86901; J7120; J2405